=== PATIENT | female | born 1960 ===

== ENCOUNTER 2024-07-16 11:13 | Emergency (ER) | payer BC ==
[2024-07-16] MEDS: methylPREDNISolone Sodium Succinate 125 MG/2 ML SDV IVPUSH ONE (11:30)
[2024-07-16] MEDS: diphenhydrAMINE 50 MG/ML SDV IVPUSH ONE (11:30)
[2024-07-16] MEDS: EPINEPHrine 1 MG/1 ML Amp IM ONE (11:31)
[2024-07-16] MEDS: Sodium Chloride 0.9% 1,000 ML IV ONE (11:31)
[2024-07-16] MEDS: Sodium Chloride 0.9% 2.5 ML Syringe FLUSH PRN (11:31)
[2024-07-16] MEDS: Sodium Chloride 0.9% 10 ML Syringe FLUSH PRN (11:31)
[2024-07-16] MEDS: Cetirizine 10 MG Tab PO ONE (11:32)
== END 2024-07-16 14:25 | disposition home or self-care (01) ==
LOC: MW.ED 11:13
DX: T78.2XXA Anaphylactic shock, unspecified, initial encounter (principal); Z88.5 Allergy status to narcotic agent; Z79.899 Other long term (current) drug therapy; Z75.8 Other problems related to medical facilities and other health care
CPT/HCPCS: 96361; 96372; 96374; 96375; 99284; A9270; J0171; J1200; J2919; J3490; J7030